=== PATIENT | female | born 1940 | race Caucasian/White ===

== ENCOUNTER → 2021-11-28 | Outpatient (CLI) | payer SELFPAY | LOC: LAB SHORT 14:53 | DX: R35.0 Frequency of micturition (principal) | CPT/HCPCS: 87077; 87086; 87186 ==

== ENCOUNTER → 2022-04-15 | Outpatient (CLI) | payer MEDICARE | END | disposition home or self-care (01) | LOC: LAB SHORT 14:59 → PLD 14:59 | DX: C44.311 Basal cell carcinoma of skin of nose (principal) | CPT/HCPCS: 88305 ==

== ENCOUNTER → 2022-12-16 | Outpatient (CLI) | payer MEDICARE | END | disposition home or self-care (01) | LOC: PLD 14:49 → LAB SHORT 14:49 | DX: C44.629 Squamous cell carcinoma of skin of left upper limb, including shoulder (principal); D48.5 Neoplasm of uncertain behavior of skin | CPT/HCPCS: 88305 ==

== ENCOUNTER → 2023-04-13 | Outpatient (CLI) | payer MEDICARE | END | disposition home or self-care (01) | LOC: LAB SHORT 07:43 → PLD 07:43 | DX: D04.72 Carcinoma in situ of skin of left lower limb, including hip (principal) | CPT/HCPCS: 88305 ==

== ENCOUNTER → 2024-07-22 | Outpatient (CLI) | payer MEDICARE ==
[~2024-07-22] MED LIST: Acetaminophen650 M1; Azopt10 ML OP; CRANBERRY500 M1 PO; ELIQUIS5 M2 PO; FLUTICASONE-SA1 EAC1 INH; HYDCHL25 PO; LATA.005SO; LEVSOD100; LOSA50 PO; METO50ER; OXYTROL1 EACH TD; PANT40; SPIR25 PO; VITAMIN D5000 UNIT PO
== END ==
LOC: LAB 14:29 → LAB SHORT 14:29
DX: N39.0 Urinary tract infection, site not specified (principal); R31.9 Hematuria, unspecified
CPT/HCPCS: 87077; 87086; 87186

== ENCOUNTER → 2024-12-17 | Outpatient (CLI) | payer MEDICARE | LOC: LAB 14:12 → LAB SHORT 14:12 | DX: N39.0 Urinary tract infection, site not specified (principal) | CPT/HCPCS: 87077; 87086; 87186 ==